=== PATIENT | female | born 1970 | race African-American/Black ===

== ENCOUNTER 2020-02-10 18:17 | Inpatient (IN) ==
[2020-02-10] MEDS ORDERED: ONDANSETRON 4 MG/2 ML VIAL IV PRN (20:59)
[2020-02-10] MEDS ORDERED: diphenhydrAMINE CAP 25 MG CAPSULE PO PRN (20:59)
[2020-02-10] MEDS ORDERED: guaiFENesin/DM ER 600-30 MG TABLET PO PRN (20:59)
[2020-02-10] MEDS ORDERED: DEXTROSE 50% 25 GM/50 ML VIAL IV PRN (20:59)
[2020-02-10] MEDS ORDERED: NICOTINE 21 MG/24 HR PATCH TRANSDERM PRN (20:59)
[2020-02-10] MEDS ORDERED: GLUCAGON 1 MG VIAL IM PRN (20:59)
[2020-02-10] MEDS ORDERED: MORPHINE 4 MG/1 ML VIAL IV PRN (20:59)
[2020-02-10 21:37] LABS: Basophils # 0.1 10*3/uL (0.0-0.2); Basophils % 0.5 % (0.0-0.8); Eosinophils # 0.1 10*3/uL (0.0-0.87); Eosinophils % 0.4 % (0.00-10.9); Hematocrit 23.6 VOL% (35.7-47.0); Hemoglobin 7.1 GM/DL (12.0-16.0); Immature Granulocytes % 1.1 %; Immature Granulocytes Absolute 0.15 #; Lymphocytes # 2.9 10*3/uL (1.4-4.0); Lymphocytes % 20.6 % (21.3-54.2); Mean Corpuscular HGB Conc 30.1 GM/DL (32-36); Mean Corpuscular Volume 70.2 FL (87-102); Mean Platelet Volume 9.1 FL (9.6-12.0); Monocytes % 6.8 % (1.7-12.7); NRBC # 0.73 10*3/uL; Neutrophils % 70.6 % (38.7-73.9); Platelet Count 507 T/CUMM (130-400); Red Blood Count 3.36 MC/CUMM (3.8-5.5); Red Cell Distribution Width 20.6 % (9.3-17.3); White Blood Count 14.2 T/CUMM (4-12)
[2020-02-10 22:15] LABS: Bilirubin,Total 0.9 MG/DL (0.2-1.0); Calcium 8.9 MG/DL (8.5-10.1); Osmolality,Calculated 271.1 MOS/KG (273-304); Risk Ratio 5.36; Thyroid Stimulating Hormone 4.62 uIU/ml (0.358-3.74); Total Protein 7.6 G/DL (6.4-8.3); VLDL CHOLESTEROL 17.8 MG/DL
[2020-02-11] MEDS: ALBUTEROL/IPRATROPIUM 3 ML NEB RESP TX SCH ×4 (00:43→19:38)
[2020-02-11] MEDS: INSULIN REGULAR 100 UNIT/ML SUBCUT SCH ×5 (00:55→21:24)
[2020-02-11 02:47] LABS: Bacteria,Urine Occasional /HPF (Few); Bilirubin,Urine Negative (Negative); Blood, Urine Small mg/dL (Negative); Glucose,Urine (UA) Negative (Negative); Hyaline Casts,Urine 46 /LPF (0-3); Ketones,Urine Negative (Negative); Mucus,Urine Few /LPF (Occasional); Nitrite,Urine Negative (Negative); Protein,Urine 100 MG/DL; RBC,Urine 1 /HPF (0-4); Squamous Epithelial Cell,Urine Occasional /HPF (0-10); Urine Appearance Slightly Hazy (Clear); Urine Color Yellow (Yellow); Urine Specific Gravity 1.012 (1.001-1.035); WBC,Urine 3 /HPF (0-6)
[2020-02-11 05:23] LABS: Basophils % 0.3 % (0.0-0.8); Eosinophils # 0.1 10*3/uL (0.0-0.87); Eosinophils % 0.8 % (0.00-10.9); Hematocrit 22.7 VOL% (35.7-47.0); Hemoglobin 6.8 GM/DL (12.0-16.0); Immature Granulocytes % 0.9 %; Immature Granulocytes Absolute 0.11 #; Lymphocytes # 2.2 10*3/uL (1.4-4.0); Lymphocytes % 18.6 % (21.3-54.2); Mean Corpuscular Volume 69.2 FL (87-102); Mean Platelet Volume 9.4 FL (9.6-12.0); NRBC # 0.44 10*3/uL; Neutrophils % 73.4 % (38.7-73.9); Platelet Count 438 T/CUMM (130-400); Red Blood Count 3.28 MC/CUMM (3.8-5.5); Red Cell Distribution Width 20.4 % (9.3-17.3); White Blood Count 11.9 T/CUMM (4-12)
[2020-02-11] MEDS ORDERED: SODIUM CHLORIDE 0.9% 1,000 ML IV PRN ×2 (05:49→16:18)
[2020-02-11 05:57] LABS: Folate 16.1 NG/ML (5.4-24.0); Vitamin B12 1122 PG/ML (211-911)
[2020-02-11 06:34] LABS: Sedimentation Rate-Westergren 115 MM/HR (0-20)
[2020-02-11 07:53] LABS: % Iron Saturation 4.5 % (18-50)
[2020-02-11] MEDS ORDERED: ENOXAPARIN 80 MG/0.8 ML SYRINGE SUBCUT SCH (09:00)
[2020-02-11] MEDS ORDERED: IRON SUCROSE 300 MG in SODIUM CHLORIDE 0.9% 100 ML IV ONE (09:14)
[2020-02-11] MEDS: FUROSEMIDE 40 MG/4 ML VIAL IV SCH (10:18)
[2020-02-11] MEDS: PANTOPRAZOLE 40 MG VIAL IV SCH ×2 (10:19→21:20)
[2020-02-11] MEDS: LEVOFLOXACIN INJ 500 MG in PREMIX 1 EACH IV SCH (10:20)
[2020-02-11 10:55] LABS: Hemoglobin A1 (Alkaline) 97.9 % (96.5-98.5); Hemoglobin A2 (Alkaline) 2.1 % (1.5-3.5)
[2020-02-11] MEDS ORDERED: TUBERCULIN SKIN TEST 0.1 ML SYRINGE INTRADERM ONE (12:05)
[2020-02-11] MEDS ORDERED: FUROSEMIDE 20 MG/2 ML VIAL IV ONE ×2 (12:23→20:00)
[2020-02-11] MEDS ORDERED: ACETAMINOPHEN 500 MG TABLET PO ONE (13:14)
[2020-02-11] MEDS ORDERED: diphenhydrAMINE 50 MG/1 ML VIAL IV ONE (13:15)
[2020-02-11] MEDS ORDERED: ACETAMINOPHEN IV ONE (13:15)
[2020-02-11] MEDS: ACETAMINOPHEN 325 MG TABLET PO PRN (13:50)
[2020-02-11 14:46] LABS: HIV Antigen/Antibody Result Nonreactive (Nonreactive)
[2020-02-11] MEDS: PIPERACILLIN/TAZOBACTAM 3,375 MG in SODIUM CHLORIDE 0.9% 100 ML IV SCH (16:05)
[2020-02-11] MEDS ORDERED: ACETAMINOPHEN 325 MG TABLET PO SCH (16:30)
[2020-02-11] MEDS ORDERED: diphenhydrAMINE CAP 25 MG CAPSULE PO ONE (17:00)
[2020-02-12] MEDS: PIPERACILLIN/TAZOBACTAM 3,375 MG in SODIUM CHLORIDE 0.9% 100 ML IV SCH ×3 (00:25→21:11)
[2020-02-12] MEDS: HEPARIN DRIP 25,000 UNITS/500 ML PREMIX IV SCH (00:28)
[2020-02-12 00:59] LABS: Barbiturates Screen,Urine Negative (Negative); Benzodiazepines Screen,Urine Negative (Negative); Cannabinoid Screen,Urine Negative (Negative); Opiate Screen,Urine Positive (Negative); Phencyclidine Screen,Urine Negative (Negative)
[2020-02-12] MEDS: ALBUTEROL/IPRATROPIUM 3 ML NEB RESP TX SCH ×4 (01:16→19:52)
[2020-02-12 01:29] LABS: Basophils % 0.2 % (0.0-0.8); Eosinophils # 0.1 10*3/uL (0.0-0.87); Eosinophils % 0.4 % (0.00-10.9); Hematocrit 33.7 VOL% (35.7-47.0); Immature Granulocytes % 1.3 %; Immature Granulocytes Absolute 0.18 #; Lymphocytes # 1.5 10*3/uL (1.4-4.0); Lymphocytes % 11.1 % (21.3-54.2); Mean Corpuscular HGB Conc 31.5 GM/DL (32-36); Mean Corpuscular Volume 73.6 FL (87-102); Mean Platelet Volume 9.4 FL (9.6-12.0); Monocytes % 5.9 % (1.7-12.7); NRBC # 0.62 10*3/uL; Neutrophils % 81.1 % (38.7-73.9); Platelet Count 445 T/CUMM (130-400); Red Cell Distribution Width 21.6 % (9.3-17.3); White Blood Count 13.4 T/CUMM (4-12)
[2020-02-12 01:31] LABS: Hemoglobin 10.6 GM/DL (12.0-16.0); Red Blood Count 4.58 MC/CUMM (3.8-5.5)
[2020-02-12 01:58] LABS: Albumin 1.9 G/DL (3.4-5.0); Bilirubin,Total 1.4 MG/DL (0.2-1.0); Calcium 8.6 MG/DL (8.5-10.1); Osmolality,Calculated 270.2 MOS/KG (273-304)
[2020-02-12] MEDS ORDERED: amLODIPine 5 MG TABLET PO ONE (09:23)
[2020-02-12] MEDS: FUROSEMIDE 40 MG/4 ML VIAL IV SCH (09:51)
[2020-02-12] MEDS: INSULIN REGULAR 100 UNIT/ML SUBCUT SCH ×4 (09:52→21:43)
[2020-02-12] MEDS: PANTOPRAZOLE 40 MG VIAL IV SCH ×2 (09:53→21:11)
[2020-02-12 09:57] LABS: INR 1.2; PT Patient Result 12.3 SECS (9.8-11.9); Partial Thromboplastin Time 43.3 SECS (23.9-33.8)
[2020-02-12] MEDS: LEVOFLOXACIN INJ 500 MG in PREMIX 1 EACH IV SCH (09:57)
[2020-02-12] MEDS: ACETAMINOPHEN 325 MG TABLET PO PRN ×2 (11:04→15:20)
[2020-02-12] MEDS ORDERED: SODIUM CHLORIDE 3% 4 ML NEB RESP TX ONE (14:30)
[2020-02-12] MEDS: FERROUS SULFATE 325 MG TABLET PO SCH ×2 (15:21→21:11)
[2020-02-12 16:55] LABS: INR 1.2; PT Patient Result 12.6 SECS (9.8-11.9); Partial Thromboplastin Time 39.9 SECS (23.9-33.8)
[2020-02-12 23:31] LABS: INR 1.1; PT Patient Result 12.1 SECS (9.8-11.9); Partial Thromboplastin Time 42.3 SECS (23.9-33.8)
[2020-02-13] MEDS: ALBUTEROL/IPRATROPIUM 3 ML NEB RESP TX SCH ×4 (02:11→19:00)
[2020-02-13] MEDS: PIPERACILLIN/TAZOBACTAM 3,375 MG in SODIUM CHLORIDE 0.9% 100 ML IV SCH ×3 (04:57→21:00)
[2020-02-13 05:27] LABS: Albumin 1.9 G/DL (3.4-5.0); Bilirubin,Total 0.9 MG/DL (0.2-1.0); Calcium 8.5 MG/DL (8.5-10.1); Osmolality,Calculated 273.8 MOS/KG (273-304); Total Protein 7.1 G/DL (6.4-8.3)
[2020-02-13] MEDS: INSULIN REGULAR 100 UNIT/ML SUBCUT SCH ×4 (07:31→21:00)
[2020-02-13] MEDS: amLODIPine 5 MG TABLET PO SCH (08:07)
[2020-02-13] MEDS: FERROUS SULFATE 325 MG TABLET PO SCH ×3 (08:08→21:00)
[2020-02-13] MEDS: FUROSEMIDE 40 MG/4 ML VIAL IV SCH (08:08)
[2020-02-13] MEDS: PANTOPRAZOLE 40 MG VIAL IV SCH ×2 (08:10→21:00)
[2020-02-13] MEDS: HEPARIN DRIP 25,000 UNITS/500 ML PREMIX IV SCH (11:00)
[2020-02-13] MEDS: LEVOFLOXACIN INJ 500 MG in PREMIX 1 EACH IV SCH (11:04)
[2020-02-13 21:32] LABS: INR 1.1; PT Patient Result 11.6 SECS (9.8-11.9); Partial Thromboplastin Time 45.7 SECS (23.9-33.8)
[2020-02-14] MEDS: ALBUTEROL INHALER 18 GM INH SCH ×4 (01:16→21:36)
[2020-02-14] MEDS: PIPERACILLIN/TAZOBACTAM 3,375 MG in SODIUM CHLORIDE 0.9% 100 ML IV SCH ×2 (04:30→13:29)
[2020-02-14] MEDS: HEPARIN DRIP 25,000 UNITS/500 ML PREMIX IV SCH (05:21)
[2020-02-14 05:27] LABS: Albumin 1.8 G/DL (3.4-5.0); Calcium 8.7 MG/DL (8.5-10.1); Osmolality,Calculated 266.2 MOS/KG (273-304); Total Protein 7.1 G/DL (6.4-8.3)
[2020-02-14] MEDS ORDERED: MAGNESIUM SULF RIDER 2 GM in PREMIX 1 EACH IV PRN (07:15)
[2020-02-14] MEDS ORDERED: MAGNESIUM SULF RIDER 4 GM in PREMIX 1 EACH IV PRN (07:15)
[2020-02-14] MEDS: INSULIN REGULAR 100 UNIT/ML SUBCUT SCH (08:44)
[2020-02-14] MEDS: POTASSIUM CHLORIDE 20 MEQ TABLET PO PRN ×4 (09:52→15:50)
[2020-02-14] MEDS: amLODIPine 5 MG TABLET PO SCH (09:52)
[2020-02-14] MEDS: FERROUS SULFATE 325 MG TABLET PO SCH ×3 (09:52→21:26)
[2020-02-14 10:02] LABS: Basophils % 0.4 % (0.0-0.8); Eosinophils # 0.1 10*3/uL (0.0-0.87); Eosinophils % 1.1 % (0.00-10.9); Hemoglobin 10.5 GM/DL (12.0-16.0); Immature Granulocytes Absolute 0.11 #; Lymphocytes # 1.5 10*3/uL (1.4-4.0); Lymphocytes % 13.5 % (21.3-54.2); Mean Corpuscular HGB Conc 30.9 GM/DL (32-36); Mean Corpuscular Volume 75.4 FL (87-102); Mean Platelet Volume 9.2 FL (9.6-12.0); Monocytes % 5.2 % (1.7-12.7); NRBC # 0.06 10*3/uL; Neutrophils % 78.8 % (38.7-73.9); Platelet Count 409 T/CUMM (130-400); Red Blood Count 4.51 MC/CUMM (3.8-5.5); Red Cell Distribution Width 23.1 % (9.3-17.3)
[2020-02-14 10:28] LABS: Anisocytosis 1+; Hypochromasia 2+; Microcytosis 1+; Target Cells Few
[2020-02-14 10:29] LABS: Platelet Estimate Increased; Polychromasia Slight
[2020-02-14] MEDS: PANTOPRAZOLE 40 MG VIAL IV SCH (10:46)
[2020-02-14] MEDS: LEVOFLOXACIN INJ 500 MG in PREMIX 1 EACH IV SCH (11:47)
[2020-02-14] MEDS: APIXABAN 5 MG TABLET PO SCH ×2 (11:47→21:26)
[2020-02-14] MEDS: AMOXICILLIN 500 MG CAPSULE PO SCH (21:26)
[2020-02-15] MEDS: ALBUTEROL INHALER 18 GM INH SCH ×3 (02:28→13:45)
[2020-02-15] MEDS: AMOXICILLIN 500 MG CAPSULE PO SCH ×2 (05:15→15:23)
[2020-02-15 05:19] LABS: Basophils # 0.1 10*3/uL (0.0-0.2); Basophils % 0.6 % (0.0-0.8); Eosinophils # 0.1 10*3/uL (0.0-0.87); Eosinophils % 1.7 % (0.00-10.9); Hematocrit 33.9 VOL% (35.7-47.0); Hemoglobin 10.1 GM/DL (12.0-16.0); Immature Granulocytes % 1.2 %; Lymphocytes % 24.1 % (21.3-54.2); Mean Corpuscular HGB Conc 29.8 GM/DL (32-36); Mean Corpuscular Volume 78.5 FL (87-102); Mean Platelet Volume 9.2 FL (9.6-12.0); Monocytes % 6.7 % (1.7-12.7); NRBC # 0.06 10*3/uL; Neutrophils % 65.7 % (38.7-73.9); Platelet Count 364 T/CUMM (130-400); Red Blood Count 4.32 MC/CUMM (3.8-5.5); Red Cell Distribution Width 24.1 % (9.3-17.3); White Blood Count 8.1 T/CUMM (4-12)
[2020-02-15 05:50] LABS: Albumin 1.8 G/DL (3.4-5.0); Bilirubin,Total 0.8 MG/DL (0.2-1.0); Calcium 8.8 MG/DL (8.5-10.1)
[2020-02-15 05:55] LABS: Hypochromasia 1+; Platelet Estimate Adequate
[2020-02-15 05:56] LABS: Microcytosis Slight
[2020-02-15 06:29] LABS: Calcium 8.5 MG/DL (8.5-10.1); Osmolality,Calculated 272.8 MOS/KG (273-304)
[2020-02-15] MEDS: amLODIPine 5 MG TABLET PO SCH (10:07)
[2020-02-15] MEDS: FERROUS SULFATE 325 MG TABLET PO SCH ×2 (10:08→15:23)
[2020-02-15] MEDS: APIXABAN 5 MG TABLET PO SCH (10:09)
[2020-02-15 16:20] VITALS: BP 122/89
[2020-02-16 22:16] LABS: QuantiFERON-Tb Gold Pl Negative (Negative); TB2 Ag Minus Result 0 IU/mL
== END 2020-02-15 17:15 | disposition home or self-care (01) | DRG 176 ==
LOC: N.TELEN → SUATTDRO 02-11 08:59 → N.2E 02-12 13:42
PROVIDERS: ADMIT Internal Medicine; ATTEND Family Medicine